=== PATIENT | female | born 1950 | race Caucasian/White ===

== ENCOUNTER 2018-04-15 06:43 | Day surgery (SDC) | payer MEDICARE, BC ==
[~2018-04-15 06:43] MED LIST: Lactated Ringers 1,000 ML IV SCH; Sodium Chloride 0.9% 10 ML Syringe FLUSH PRN; Sodium Chloride 0.9% 2.5 ML Syringe FLUSH PRN; ceFAZolin 2 GM in Premix Bag 1 BAG IV ONE
[2018-04-15] MEDS ORDERED: Lidocaine 2% 5 ML SDV ONE (07:20)
[2018-04-15] MEDS ORDERED: Ondansetron 4 MG/2 ML SDV ONE (07:20)
[2018-04-15] MEDS ORDERED: Propofol 200 MG/20 ML SDV ONE (07:21)
[2018-04-15] MEDS ORDERED: fentaNYL 100 MCG/2 ML SDV ONE (07:21)
[2018-04-15] MEDS ORDERED: Midazolam 1 MG/ML 2 ML SDV ONE (07:21)
[2018-04-15] MEDS ORDERED: Bupivacaine 0.5% 10 ML SDV ONE (07:24)
[2018-04-15] MEDS ORDERED: Heparin Sodium 100 Units/ML 3 ML Syringe ONE (07:25)
[2018-04-15] MEDS ORDERED: Lidocaine 1% 20 ML MDV ONE (07:25)
[2018-04-15] MEDS ORDERED: Iopamidol 408 MG/ML 50 ML SDV ONE (07:25)
--- NOTE | 2018-04-15 07:25 | PCM.PREANE ---
Preanesthetic Assessment - Anesthesia/Transfusion/Family Hx Anesthesia History: Prior Anesthesia Without Reaction Family History of Anesthesia Reaction: No Transfusion History: Prior Transfusion Without Reaction Intubation History: Unknown - Review of Systems General: No Symptoms Pulmonary: No Symptoms Cardiovascular: No Symptoms Gastrointestinal: No Symptoms Neurological: No Symptoms Other: Reports: None - Physical Assessment NPO Status Date: 04/14/18 O2 Sat by Pulse Oximetry: 96 Respiratory Rate: 16 Vital Signs: Last Vital Signs Temp 37.4 C 04/15/18 07:22 Pulse 107 H 04/15/18 07:22 Resp 16 04/15/18 07:22 BP 142/86 H 04/15/18 07:22 Pulse Ox 96 04/15/18 07:22 Height: 1.65 m Weight: 79.832 kg ASA Class: 2 Mental Status: Alert & Oriented x3 Airway Class: Mallampati = 1 Dentition: Reports: Normal Dentition ROM/Head Extension: Full Lungs: Clear to Auscultation, Normal Respiratory Effort - Allergies Allergies/Adverse Reactions: Allergies Allergy/AdvReac Type Severity Reaction Status Date / Time erythromycin base Allergy Hives Verified 04/10/18 12:32 nitrofurantoin Allergy Hives Verified 04/10/18 12:32 [From Macrodantin] Sulfa (Sulfonamide Allergy Hives Verified 04/10/18 12:32 Antibiotics) - Blood Blood Available: No - Anesthesia Plan Pre-Op Medication Ordered: None - Acknowledgements Anesthesia Type Planned: General Anesthesia Pt an Appropriate Candidate for the Planned Anesthesia: Yes Alternatives and Risks of Anesthesia Discussed w Pt/Guardian: Yes Pt/Guardian Understands and Agrees with Anesthesia Plan: Yes Additional Comments: PMH: colon cancer, sore throat from ETT () PLAN: GA-LMA PreAnesthesia Questionnaire HEENT History: Reports: Other (See Below) Other HEENT History: wears glasses Cardiovascular History: Reports: Heart Murmur, Other (See Below) Other Cardiovascular History: mitral valve prolapse discovered by chance, always asymptomatic Gastrointestinal History: Reports: Colon Polyp Genitourinary History: Reports: None [employer] History: Reports: Ectopic , Endocrine/Metabolic History: Reports: None Hematologic History: Reports: Blood Transfusion(s) Oncologic (Cancer) History: Reports: Colon - Past Surgical History Head Surgeries/Procedures: Reports: None GI Surgical History: Reports: Colon, Colonoscopy Other GI Surgeries/Procedures: hx colon resection for colon cancer Female Surgical History: Reports: Section, Other (See Below) Other Female Surgeries/Procedures: laparotomy with salpingectomy for ectopic - SUBSTANCE USE Smoking Status *Q: Never Smoker Recreational Drug Use History: No - HOME MEDS Home Medications: Home Meds . [No Known Home Meds] 01/13/18 [History] - CURRENT (IN HOUSE) MEDS Current Meds: Current Medications Lactated Ringer's (Ringers, Lactated) 1,000 mls @ 125 mls/hr IV ASDIRECTED AYSHA Last Admin: 04/15/18 07:22 Dose: 125 mls/hr Sodium Chloride (Saline Flush) 10 ml FLUSH ASDIRECTED PRN PRN Reason: Keep Vein Open Sodium Chloride (Saline Flush) 2.5 ml FLUSH ASDIRECTED PRN PRN Reason: Keep Vein Open Discontinued Medications Cefazolin Sodium/Dextrose 2 gm (/ Premix) 50 mls @ 100 mls/hr IV ONETIME ONE Stop: 04/14/18 10:09
[2018-04-15] MEDS ORDERED: ceFAZolin/Dextrose,Iso-Osmotic 2 GM/50 ML Duplex Bag IV ONE (07:49)
[2018-04-15] MEDS ORDERED: fentaNYL 100 MCG/2 ML SDV IVPUSH PRN (08:43)
--- NOTE | 2018-04-15 09:03 | PCM.OPNOTE ---
- General Post-Op/Procedure Note Date of Surgery/Procedure: 04/15/18 Operative Procedure(s): Port a cath placement Findings: RIJ port a cath placement Pre Op Diagnosis: Colon cancer Post-Op Diagnosis: colon cancer Anesthesia Technique: General LMA Primary Surgeon: Cierra Mayers EBL in mLs: 5 Condition: Good
--- NOTE | 2018-04-15 09:39 | PCM.POSTAN ---
POST ANESTHESIA ASSESSMENT - MENTAL STATUS Mental Status: Alert, Oriented - RESPIRATORY Respiratory Status: Respiratory Rate WNL, Airway Patent, O2 Saturation Stable - CARDIOVASCULAR CV Status: Pulse Rate WNL, Blood Pressure Stable - GASTROINTESTINAL GI Status: No Symptoms - POST OP HYDRATION Hydration Status: Adequate & Stable
--- NOTE | 2018-04-15 09:44 | CR ---
EXAMINATION: Portable chest radiograph. HISTORY: Portacatheter placement. FINDINGS: The trachea is midline. The cardiomediastinal silhouette is within normal limits. No pulmonary infiltrates, effusions or pneumothorax. There is a right-sided portacatheter noted with tip in good position. Osseous structures appear unremarkable. IMPRESSION: No acute cardiopulmonary process.
--- NOTE | 2018-04-15 10:04 | PCM48HPAN ---
Post Anesthesia Note - EVALUATION WITHIN 48HRS OF ANESTHETIC Vital Signs in Normal Range: Yes Patient Participated in Evaluation: Yes Respiratory Function Stable: Yes Airway Patent: Yes Cardiovascular Function Stable: Yes Hydration Status Stable: Yes Pain Control Satisfactory: Yes Nausea and Vomiting Control Satisfactory: Yes Mental Status Recovered: Yes Resp Rate: 14
--- NOTE | 2018-04-15 12:29 | OR ---
SURGEON: LAUREN PINEDO MD DATE OF PROCEDURE: 04/15/2018 PREOPERATIVE DIAGNOSIS: Colon cancer. POSTOPERATIVE DIAGNOSIS: Colon cancer. PROCEDURE PERFORMED: Right internal jugular Port-A-Cath placement. ANESTHESIA: General LMA. FLUIDS: 1400 mL. ESTIMATED BLOOD LOSS: 5 mL. FINDINGS: Placement of right internal jugular port. COMPLICATIONS: None. INDICATIONS: The patient is a 67-year-old female who recently underwent surgery for multifocal colon cancer. She was found to have positive lymph nodes. Because of this, she will need to undergo chemotherapy and is in need of a Port-A-Cath. I explained the procedure to place a Port-A-Cath, the expected perioperative course, and risks including bleeding, infection, or damage to surrounding structures. The patient verbalized understanding and wishes to proceed. PROCEDURE IN DETAIL: The patient was brought to the OR and placed on the OR table in supine position. A time-out was completed verifying the patient's name, age, date of , allergies, and procedure to be performed. General LMA anesthesia was induced. A shoulder roll was placed under the patient's shoulders and both arms were tucked at the patient's side. An ultrasound was used to confirm the vascular anatomy of the right side of the neck. The neck and chest were then prepped and draped in usual standard fashion. The patient was placed into Trendelenburg position. I used a sterile ultrasound probe to re-identify the vascular anatomy of the neck. I anesthetized the area overlying the right internal jugular vein with 1% lidocaine plain. I anesthetized the tunnel tract and the chest wall site with the remainder my lidocaine as well as with 0.5% Marcaine. Using ultrasound guidance, I then placed a guide needle into the right internal jugular vein. A guidewire was placed down the needle and advanced without difficulty. The needle was removed and the guidewire was secured to the drapes. C-arm was brought in, which showed good placement of the wire into the SVC down into the IVC. I then turned my attention to the right anterior chest wall. I chose a spot two fingerbreadths below the lateral right clavicle and made a 4-cm incision using a #15 blade. Cautery was used to dissect down into the subcutaneous fat layer and created a subcutaneous pocket. Once this was created, I then tunneled the catheter tubing from the anterior chest wall site up to the guidewire insertion site. An 11 blade was used to make an incision overlying the guidewire to allow passage of the tunneler. The vascular sheath and dilator were then placed over the guidewire and the vascular tract was dilated using fluoroscopic guidance. The dilator was removed and the catheter tubing was placed down the vascular sheath. The vascular sheath was peeled away. Using fluoroscopic guidance, I pulled the end of the catheter tubing into the distal SVC. An x-ray of this was taken and saved. The catheter tubing was aspirated and flushed with normal saline. A brisk return of venous blood was noted. I then turned the catheter tubing to size and place it on the Port-A- Cath device. The port was then placed in the chest wall pocket and secured with 2-0 Prolenes on either side. The Port-A-Cath device was aspirated and there was a brisk return of venous blood. I then locked the Port-A-Cath with 4 mL of heparin. I then closed the chest wall site with interrupted 3-0 Vicryls in the subcutaneous fat layer and closed the skin with a running 4-0 Monocryl stitch. I closed the neck insertion site with an interrupted 4-0 Monocryl suture. Steri- Strips and sterile dressings were applied. The patient tolerated the procedure well, was taken to PACU in stable condition. LEONOR NEAL /[id number]
--- NOTE | 2018-04-15 14:58 | CR ---
EXAMINATION: Chest HISTORY: Portacatheter placement COMPARISON: Same day TECHNIQUE: Single fluoroscopic image FINDINGS/IMPRESSION: Operative control film demonstrates portacatheter tubing projecting over the right SVC.
== END 2018-04-15 10:17 | disposition home or self-care (01) ==
LOC: MW.SDS 06:43
PROVIDERS: ATTEND Surgery
DX: C18.9 Malignant neoplasm of colon, unspecified (principal); C77.9 Secondary and unspecified malignant neoplasm of lymph node, unspecified; Z79.899 Other long term (current) drug therapy; Z80.0 Family history of malignant neoplasm of digestive organs; Z90.49 Acquired absence of other specified parts of digestive tract; Z88.1 Allergy status to other antibiotic agents; Z88.2 Allergy status to sulfonamides
CPT/HCPCS: 36561; 71045; 76000; J0690; J1642; J2250; J2405; J2704; J3010; J3490; J7120; Q9966

== ENCOUNTER 2018-07-02 16:46 | Inpatient (IN) | payer MEDICARE, BC ==
[2018-07-02] MEDS ORDERED: Aspirin 81 MG Tab.Chew PO ONE (16:52)
[2018-07-02] MEDS ORDERED: Sodium Chloride 0.9% 1,000 ML IV ONE (16:52)
--- NOTE | 2018-07-02 16:53 | EDM.PDOC ---
<Jordon Burnham - Last Filed: 07/02/18 18:55> ED HPI GENERAL MEDICAL PROBLEM - General Chief Complaint: Chest Pain Stated Complaint: LEFT SIDE PAIN Time Seen by Provider: 07/02/18 16:53 Source of Information: Reports: Patient - History of Present Illness INITIAL COMMENTS - FREE TEXT/NARRATIVE: HISTORY AND PHYSICAL: History of present illness: [Patient with history of colon cancer with colon resection on chemotherapy presents with left-sided chest pain no radiation arm neck or jaw no diaphoresis or shortness of breath She has had cough over the last week no current fever nausea vomiting chills sweats no headache dizziness or palpitation no bowel or urine symptoms, no injury or trauma Had spoken with her cancer doctor who was concerned with PE she presents as such ] Review of systems: As per history of present illness and below otherwise all systems reviewed and negative. Past medical history: As per history of present illness and as reviewed below otherwise noncontributory. Surgical history: As per history of present illness and as reviewed below otherwise noncontributory. Social history: No reported history of drug or alcohol abuse. Family history: As per history of present illness and as reviewed below otherwise noncontributory. Physical exam: HEENT: Atraumatic, normocephalic, pupils reactive, negative for conjunctival pallor or scleral icterus, mucous membranes moist, throat clear, neck supple, nontender, trachea midline. Lungs: Clear to auscultation, breath sounds equal bilaterally, chest nontender on right there is some tenderness on the lower rib margins on the left. Post DuoNeb and Solu-Medrol Heart: S1S2, regular, negative for clicks, rubs, or JVD. Abdomen: Soft, nondistended, nontender. Negative for masses or hepatosplenomegaly. Negative for costovertebral tenderness. Pelvis: Stable nontender. Genitourinary: Deferred. Rectal: Deferred. Extremities: Atraumatic, negative for cords or calf pain. Neurovascular unremarkable. Neuro: Awake, alert, oriented. Cranial nerves II through XII unremarkable. Cerebellum unremarkable. Motor and sensory unremarkable throughout. Exam nonfocal. Diagnostics: [CBC CMP UA troponin and d-dimer EKG Chest 1 view ] Therapeutics: [ saline DuoNeb Solu-Medrol Azithromycin Atrial dose pack HFA ] Impression: [ bronchitis left-sided chest wall pain ] Elevated d-dimer Chronic history of baseline Definitive disposition and diagnosis as appropriate pending reevaluation and review of above. Left Chest Pain Score (Numeric/FACES): 5 - Related Data Allergies Allergy/AdvReac Type Severity Reaction Status Date / Time erythromycin base Allergy Hives Verified 07/02/18 16:53 nitrofurantoin Allergy Hives Verified 07/02/18 16:53 [From Macrodantin] Sulfa (Sulfonamide Allergy Hives Verified 07/02/18 16:53 Antibiotics) Home Meds: Home Meds Non-Formulary Medication [NF Drug] 1 tab PO BID 07/02/18 [History] Ondansetron [Ondansetron ODT] 1 tab PO ASDIRECTED PRN 07/02/18 [History] Prochlorperazine [Compazine] 10 mg PO ASDIRECTED PRN 07/02/18 [History] Past Medical History HEENT History: Reports: Other (See Below) Other HEENT History: wears glasses Cardiovascular History: Reports: Heart Murmur, Other (See Below) Other Cardiovascular History: mitral valve prolapse discovered by chance, always asymptomatic Gastrointestinal History: Reports: Colon Polyp Genitourinary History: Reports: None 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: 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: Ectopic , Endocrine/Metabolic History: Reports: None Hematologic History: Reports: Blood Transfusion(s) Oncologic (Cancer) History: Reports: Colon - Past Surgical History Head Surgeries/Procedures: Reports: None GI Surgical History: Reports: Colon, Colonoscopy Other GI Surgeries/Procedures: hx colon resection for colon cancer Female Surgical History: Reports: Section, Other (See Below) Other Female Surgeries/Procedures: laparotomy with salpingectomy for ectopic Course - Vital Signs Last Recorded V/S: Last Vital Signs Temp 36.2 C 07/02/18 16:49 Pulse 110 H 07/02/18 17:53 Resp 20 07/02/18 16:49 BP 147/94 H 07/02/18 17:53 Pulse Ox 98 07/02/18 17:53 - Orders/Labs/Meds Orders: Active Orders 24 hr Category Date Time Status EKG 12 Lead [EKG Documentation Completion] [RC] STAT Care 07/02/18 16:53 Active RT Aerosol Therapy [RC] ASDIRECTED Care 07/02/18 18:38 Active Labs: Laboratory Tests 07/02/18 07/02/18 07/02/18 Range/Units 17:30 17:30 18:05 WBC 8.77 (4.0-11.0) K/uL RBC 4.12 L (4.30-5.90) M/uL Hgb 12.8 (12.0-16.0) g/dL Hct 37.0 (36.0-46.0) % MCV 89.8 (80.0-98.0) fL MCH 31.1 (27.0-32.0) pg MCHC 34.6 (31.0-37.0) g/dL RDW Std Deviation 51.6 (28.0-62.0) fl RDW Coeff of Gene 16 H (11.0-15.0) % Plt Count 128 L (150-400) K/uL MPV 9.60 (7.40-12.00) fL Neut % (Auto) 64.7 (48.0-80.0) % Lymph % (Auto) 22.3 (16.0-40.0) % Stark % (Auto) 10.7 (0.0-15.0) % Eos % (Auto) 2.2 (0.0-7.0) % Baso % (Auto) 0.1 (0.0-1.5) % Neut # (Auto) 5.7 (1.4-5.7) K/uL Lymph # (Auto) 2.0 (0.6-2.4) K/uL Stark # (Auto) 0.9 H (0.0-0.8) K/uL Eos # (Auto) 0.2 (0.0-0.7) K/uL Baso # (Auto) 0.0 (0.0-0.1) K/uL Nucleated RBC % 0.2 /100WBC Nucleated RBCs # 0 K/uL D-Dimer, Quantitative 3.04 H (0.0-0.50) mg/L FEU Sodium 139 (136-145) mmol/L Potassium 4.2 (3.5-5.1) mmol/L Chloride 104 (98-107) mmol/L Carbon Dioxide 24.5 (21.0-32.0) mmol/L BUN 17 (7.0-18.0) mg/dL Creatinine 0.7 (0.6-1.0) mg/dL Est Cr Clr Drug Dosing 72.10 mL/min Estimated GFR (MDRD) > 60.0 ml/min Glucose 105 (74-106) mg/dL Calcium 8.9 (8.5-10.1) mg/dL Total Bilirubin 0.7 (0.2-1.0) mg/dL AST 16 (15-37) IU/L ALT 24 (14-63) IU/L Alkaline Phosphatase 90 (46-116) U/L Troponin I < 0.050 (0.000-0.056) ng/mL Total Protein 7.2 (6.4-8.2) g/dL Albumin 3.3 L (3.4-5.0) g/dL Globulin 3.9 (2.6-4.0) g/dL Albumin/Globulin Ratio 0.9 (0.9-1.6) Lipase 215 (73-393) U/L Urine Color Urine Appearance Urine pH (5.0-8.0) Ur Specific [place] (1.001-1.035) Urine Protein (NEGATIVE) mg/dL Urine Glucose (UA) (NEGATIVE) mg/dL Urine Ketones (NEGATIVE) mg/dL Urine Occult Blood (NEGATIVE) Urine Nitrite (NEGATIVE) Urine Bilirubin (NEGATIVE) Urine Urobilinogen (<2.0) EU/dL Ur Leukocyte Esterase (NEGATIVE) 07/02/18 Range/Units 20:08 WBC (4.0-11.0) K/uL RBC (4.30-5.90) M/uL Hgb (12.0-16.0) g/dL Hct (36.0-46.0) % MCV (80.0-98.0) fL MCH (27.0-32.0) pg MCHC (31.0-37.0) g/dL RDW Std Deviation (28.0-62.0) fl RDW Coeff of Gene (11.0-15.0) % Plt Count (150-400) K/uL MPV (7.40-12.00) fL Neut % (Auto) (48.0-80.0) % Lymph % (Auto) (16.0-40.0) % Stark % (Auto) (0.0-15.0) % Eos % (Auto) (0.0-7.0) % Baso % (Auto) (0.0-1.5) % Neut # (Auto) (1.4-5.7) K/uL Lymph # (Auto) (0.6-2.4) K/uL Stark # (Auto) (0.0-0.8) K/uL Eos # (Auto) (0.0-0.7) K/uL Baso # (Auto) (0.0-0.1) K/uL Nucleated RBC % /100WBC Nucleated RBCs # K/uL D-Dimer, Quantitative (0.0-0.50) mg/L FEU Sodium (136-145) mmol/L Potassium (3.5-5.1) mmol/L Chloride (98-107) mmol/L Carbon Dioxide (21.0-32.0) mmol/L BUN (7.0-18.0) mg/dL Creatinine (0.6-1.0) mg/dL Est Cr Clr Drug Dosing mL/min Estimated GFR (MDRD) ml/min Glucose (74-106) mg/dL Calcium (8.5-10.1) mg/dL Total Bilirubin (0.2-1.0) mg/dL AST (15-37) IU/L ALT (14-63) IU/L Alkaline Phosphatase (46-116) U/L Troponin I (0.000-0.056) ng/mL Total Protein (6.4-8.2) g/dL Albumin (3.4-5.0) g/dL Globulin (2.6-4.0) g/dL Albumin/Globulin Ratio (0.9-1.6) Lipase (73-393) U/L Urine Color YELLOW Urine Appearance CLEAR Urine pH 5.5 (5.0-8.0) Ur Specific [place] 1.020 (1.001-1.035) Urine Protein NEGATIVE (NEGATIVE) mg/dL Urine Glucose (UA) NEGATIVE (NEGATIVE) mg/dL Urine Ketones NEGATIVE (NEGATIVE) mg/dL Urine Occult Blood NEGATIVE (NEGATIVE) Urine Nitrite NEGATIVE (NEGATIVE) Urine Bilirubin NEGATIVE (NEGATIVE) Urine Urobilinogen 0.2 (<2.0) EU/dL Ur Leukocyte Esterase NEGATIVE (NEGATIVE) Meds: Medications Discontinued Medications Generic Name Dose Route Start Last Admin Trade Name Freq PRN Reason Stop Dose Admin Albuterol/Ipratropium 3 ml 03/27/19 18:38 07/02/18 19:14 Duoneb 3.0-0.5 Mg/3 Ml NEB 07/02/18 18:39 3 ml ONETIME ONE Administration Aspirin 324 mg 07/02/18 16:52 07/02/18 17:48 Aspirin PO 07/02/18 16:53 324 mg ONETIME ONE Administration Enoxaparin Sodium 80 mg 07/02/18 20:20 Lovenox SUBCUT 07/02/18 20:21 ONETIME ONE Sodium Chloride 1,000 mls @ 999 mls/hr 07/02/18 16:52 07/02/18 17:30 Normal Saline IV 07/02/18 17:52 999 mls/hr STAT ONE Administration Iopamidol 100 ml 07/02/18 19:45 07/02/18 19:46 Isovue Multipack-370 (76%) IVPUSH 07/02/18 19:46 100 ml ONETIME STA Administration Methylprednisolone Sodium Succinate 125 mg 07/02/18 18:38 07/02/18 19:16 Solu-Medrol IVPUSH 07/02/18 18:39 125 mg ONETIME ONE Administration Departure - Departure Disposition: Admitted As Inpatient 68 Clinical Impression: Pulmonary embolism - Discharge Information Referrals: PCP,Unknown [Primary Care Provider] - Forms: ED Department Discharge <Jefry Booth - Last Filed: 07/02/18 20:23> ED HPI GENERAL MEDICAL PROBLEM - History of Present Illness INITIAL COMMENTS - FREE TEXT/NARRATIVE: Patient CT was remarkable for bilateral pulmonary embolism and suggestion of atelectasis with or without possible pulmonary infarction patient was given Lovenox milligram per kilogram subcutaneous here and will be admitted ED ROS GENERAL - Review of Systems Review Of Systems: ROS reveals no pertinent complaints other than HPI. ED EXAM, GENERAL - Physical Exam Exam: See Below (See dictation) Departure - Departure Time of Disposition: 20:21 Condition: Fair
[2018-07-02 18:26] LABS: CHLORIDE,CL 104 mmol/L (98-107); SODIUM,NA 139 mmol/L (136-145)
--- NOTE | 2018-07-02 18:31 | CR ---
Indication: Left-sided chest pain. Technique: A single AP portable view of the chest was obtained. Comparison: April 15, 2018. Findings: A right-sided Port-A-Cath is identified. The heart is normal in size. Left basilar atelectasis and/or infiltrate is identified. The right lung is clear. No pleural effusion or pneumothorax is identified. Impression: Left basilar atelectasis and/or infiltrate. Dictated by Taty Burkett MD @ Jul 02 2018 6:30PM Signed by Dr. Ttay Burkett @ Jul 02 2018 6:30PM
[2018-07-02] MEDS ORDERED: Albuterol/Ipratropium 3.0-0.5 MG/3 ML Neb Soln NEB ONE (18:38)
[2018-07-02] MEDS ORDERED: methylPREDNISolone Sodium Succinate 125 MG/2 ML SDV IVPUSH ONE (18:38)
[2018-07-02] MEDS ORDERED: Iopamidol 755 MG/ML 500 ML Multipack Bottle IVPUSH STA (19:45)
--- NOTE | 2018-07-02 20:14 | CT ---
INDICATION: Elevated D-dimer, colon cancer TECHNIQUE: CT chest pulmonary PE protocol acquired with 75 cc Isovue 370 IV contrast. COMPARISON: Chest radiographs from July 02, 2018 and April 15, 2018 FINDINGS: Cardiovascular structures: There are pulmonary emboli within segmental and subsegmental branches of both lower lobes. Heart size is normal. No sign of aneurysm or dissection in the thoracic aorta. Right-sided Port-A-Cath tip terminates at the cavoatrial junction. Mediastinum and paul: No mass or adenopathy. Lungs: Patchy opacity in the left lower lobe. Pleura and pericardium: Trace left pleural effusion. Chest wall and axilla: No mass or adenopathy. Upper abdomen: Unremarkable. Bones: No significant findings. IMPRESSION: Study is positive for bilateral pulmonary emboli within segmental and subsegmental branches of both lower lobes. No evidence for right heart strain. Patchy opacity in the left lower lobe may represent a combination of pulmonary infarction/atelectasis/ or infection. Trace left pleural effusion. These findings were discussed with Dr. Booth at 8:12 p.m. on July 02, 2018. Please note that all CT scans at this facility use dose modulation, iterative reconstruction, and/or weight-based dosing when appropriate to reduce radiation dose to as low as reasonably achievable. Dictated by Pat Huynh MD @ Jul 02 2018 8:12PM Signed by Dr. Pat Huynh @ Jul 02 2018 8:12PM
[2018-07-02] MEDS ORDERED: Enoxaparin 100 MG/1 ML Syringe SUBCUT ONE (20:20)
[2018-07-02] MEDS ORDERED: Acetaminophen 325 MG Tab PO PRN (20:52)
[2018-07-02] MEDS ORDERED: oxyCODONE 5 MG Tab PO PRN (20:53)
[2018-07-02] MEDS ORDERED: Sodium Chloride 0.9% 1,000 ML IV SCH (22:15)
[2018-07-03] MEDS ORDERED: Enoxaparin 100 MG/1 ML Syringe SUBCUT SCH (09:00)
[2018-07-03] MEDS ORDERED: Apixaban 5 MG Tab PO SCH (09:30)
--- NOTE | 2018-07-03 09:54 | PCM.HP ---
<Samia Zimmerman M - Last Filed: 07/03/18 11:59> H&P History of Present Illness - General Date of Service: 07/03/18 Admit Problem/Dx: Admission Diagnosis/Problem Admission Diagnosis/Problem Pulmonary embolism - History of Present Illness Initial Comments - Free Text/Narative: This 67 year old female with pmh of colorectal ca with colectomy and currently receiving chemotherapy treatments presented to the ED at the direction of the cancer center yesterday for L sided flank/chest pain that started the day prior. She reports she felt a little twinge on Saturday evening and by Saturday it was very painful to take a deep breath and to cough. She denied fevers or productive cough, no bloody sputum. She has no other medical history and has been doing well with chemotherapy treatments. In the ED D dimer elevated at 3.04. CXR revealed L basilar atelectasis and or infiltrate. CT angio of chest obtained which revealed bilateral pulmonary emboli within segmental and subsegmental braches of both lower lobes, no evidence of R heart strain. Patchy opacity in LLL may represent combination of infarction/atelectasis or infection. She will be admitted secondary to pulmonary emboli. Left Chest Pain Score (Numeric/FACES): 5 - Related Data Allergies/Adverse Reactions: Allergies Allergy/AdvReac Type Severity Reaction Status Date / Time erythromycin base Allergy Hives Verified 07/02/18 16:53 nitrofurantoin Allergy Hives Verified 07/02/18 16:53 [From Macrodantin] Sulfa (Sulfonamide Allergy Hives Verified 07/02/18 16:53 Antibiotics) Home Medications: Home Meds Non-Formulary Medication [NF Drug] 1 tab PO BID 07/02/18 [History] Ondansetron [Ondansetron ODT] 1 tab PO ASDIRECTED PRN 07/02/18 [History] Prochlorperazine [Compazine] 10 mg PO ASDIRECTED PRN 07/02/18 [History] Apixaban [Eliquis] 5 mg PO BID #60 tablet 07/03/18 [Rx] Apixaban [Eliquis] 10 mg PO BID #26 tablet 07/03/18 [Rx] Past Medical History HEENT History: Reports: Other (See Below) Other HEENT History: wears glasses Cardiovascular History: Reports: Heart Murmur, Other (See Below). 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 Denies: Diabetes, Type II Hematologic History: Reports: Blood Transfusion(s) Oncologic (Cancer) History: Reports: Colon - Infectious Disease History Infectious Disease History: Reports: None - Past Surgical History Head Surgeries/Procedures: Reports: None GI Surgical History: Reports: Colon, Colonoscopy Other GI Surgeries/Procedures: hx colon resection for colon cancer Female Surgical History: Reports: Section, Other (See Below) Other Female Surgeries/Procedures: laparotomy with salpingectomy for ectopic Social & Family History - Tobacco Use Smoking Status *Q: Never Smoker Second Hand Smoke Exposure: No - Caffeine Use Caffeine Use: Reports: Coffee, Tea - Alcohol Use Alcohol Use History: No - Recreational Drug Use Recreational Drug Use: No H&P Review of Systems - Review of Systems: Review Of Systems: See Below General: Reports: No Symptoms. Denies: Fever, Chills, Malaise, Weakness HEENT: Reports: No Symptoms Pulmonary: Reports: Pleuritic Chest Pain (L side under rib cage), Cough (dry, non productive). Denies: Shortness of Breath (mild, much better today), Hemoptysis Cardiovascular: Reports: No Symptoms. Denies: Chest Pain, Palpitations, Edema, Lightheadedness, Syncope Gastrointestinal: Reports: No Symptoms. Denies: Abdominal Pain, Decreased Appetite, Nausea, Vomiting Genitourinary: Reports: No Symptoms. Denies: Dysuria, Frequency, Burning Musculoskeletal: Reports: No Symptoms. Denies: Neck Pain Skin: Reports: No Symptoms. Denies: Cyanosis Psychiatric: Reports: No Symptoms. Denies: Confusion Neurological: Reports: No Symptoms Hematologic/Lymphatic: Reports: No Symptoms Immunologic: Reports: No Symptoms Exam - Exam Exam: See Below - Vital Signs Vital Signs: Last Vital Signs Temp 97 F 07/03/18 04:54 Pulse 79 07/03/18 04:54 Resp 16 07/03/18 04:54 BP 130/67 07/03/18 04:54 Pulse Ox 97 07/03/18 04:54 Weight: 82.735 kg - Exam Quality Assessment: Supplemental Oxygen (1/2 L NC) General: Alert, Oriented, 4 Neck: Supple Lungs: Clear to Auscultation, Crackles (fine to LLL) Cardiovascular: Regular Rate, Regular Rhythm GI/Abdominal Exam: Normal Bowel Sounds, Soft, Non-Tender, No Organomegaly Extremities: Normal Inspection, Normal Range of Motion, Non-Tender, No Pedal Edema Neuro Extensive - Mental Status: Alert, Oriented x3, Normal Mood/Affect Neuro Extensive - Motor, Sensory, Reflexes: CN II-XII Intact Psychiatric: Alert, Normal Affect, Normal Mood - Patient Data Lab Results Last 24 hrs: Laboratory Results - last 24 hr 07/02/18 07/02/18 07/02/18 Range/Units 17:30 17:30 18:05 WBC 8.77 (4.0-11.0) K/uL RBC 4.12 L (4.30-5.90) M/uL Hgb 12.8 (12.0-16.0) g/dL Hct 37.0 (36.0-46.0) % MCV 89.8 (80.0-98.0) fL MCH 31.1 (27.0-32.0) pg MCHC 34.6 (31.0-37.0) g/dL RDW Std Deviation 51.6 (28.0-62.0) fl RDW Coeff of Gene 16 H (11.0-15.0) % Plt Count 128 L (150-400) K/uL MPV 9.60 (7.40-12.00) fL Neut % (Auto) 64.7 (48.0-80.0) % Lymph % (Auto) 22.3 (16.0-40.0) % Walsh % (Auto) 10.7 (0.0-15.0) % Eos % (Auto) 2.2 (0.0-7.0) % Baso % (Auto) 0.1 (0.0-1.5) % Neut # (Auto) 5.7 (1.4-5.7) K/uL Lymph # (Auto) 2.0 (0.6-2.4) K/uL Walsh # (Auto) 0.9 H (0.0-0.8) K/uL Eos # (Auto) 0.2 (0.0-0.7) K/uL Baso # (Auto) 0.0 (0.0-0.1) K/uL Nucleated RBC % 0.2 /100WBC Nucleated RBCs # 0 K/uL D-Dimer, Quantitative 3.04 H (0.0-0.50) mg/L FEU Sodium 139 (136-145) mmol/L Potassium 4.2 (3.5-5.1) mmol/L Chloride 104 (98-107) mmol/L Carbon Dioxide 24.5 (21.0-32.0) mmol/L BUN 17 (7.0-18.0) mg/dL Creatinine 0.7 (0.6-1.0) mg/dL Est Cr Clr Drug Dosing 72.10 mL/min Estimated GFR (MDRD) > 60.0 ml/min Glucose 105 (74-106) mg/dL Calcium 8.9 (8.5-10.1) mg/dL Magnesium (1.8-2.4) mg/dL Total Bilirubin 0.7 (0.2-1.0) mg/dL AST 16 (15-37) IU/L ALT 24 (14-63) IU/L Alkaline Phosphatase 90 (46-116) U/L Troponin I < 0.050 (0.000-0.056) ng/mL Total Protein 7.2 (6.4-8.2) g/dL Albumin 3.3 L (3.4-5.0) g/dL Globulin 3.9 (2.6-4.0) g/dL Albumin/Globulin Ratio 0.9 (0.9-1.6) Lipase 215 (73-393) U/L Urine Color Urine Appearance Urine pH (5.0-8.0) Ur Specific Colgate (1.001-1.035) Urine Protein (NEGATIVE) mg/dL Urine Glucose (UA) (NEGATIVE) mg/dL Urine Ketones (NEGATIVE) mg/dL Urine Occult Blood (NEGATIVE) Urine Nitrite (NEGATIVE) Urine Bilirubin (NEGATIVE) Urine Urobilinogen (<2.0) EU/dL Ur Leukocyte Esterase (NEGATIVE) 07/02/18 07/03/18 07/03/18 Range/Units 20:08 05:43 05:43 WBC 7.98 (4.0-11.0) K/uL RBC 4.06 L (4.30-5.90) M/uL Hgb 12.5 (12.0-16.0) g/dL Hct 36.5 (36.0-46.0) % MCV 89.9 (80.0-98.0) fL MCH 30.8 (27.0-32.0) pg MCHC 34.2 (31.0-37.0) g/dL RDW Std Deviation 50.6 (28.0-62.0) fl RDW Coeff of Gene 16 H (11.0-15.0) % Plt Count 123 L (150-400) K/uL MPV 10.00 (7.40-12.00) fL Neut % (Auto) 89.0 H (48.0-80.0) % Lymph % (Auto) 8.9 L (16.0-40.0) % Walsh % (Auto) 2.1 (0.0-15.0) % Eos % (Auto) 0.0 (0.0-7.0) % Baso % (Auto) 0.0 (0.0-1.5) % Neut # (Auto) 7.1 H (1.4-5.7) K/uL Lymph # (Auto) 0.7 (0.6-2.4) K/uL Walsh # (Auto) 0.2 (0.0-0.8) K/uL Eos # (Auto) 0.0 (0.0-0.7) K/uL Baso # (Auto) 0.0 (0.0-0.1) K/uL Nucleated RBC % 0.0 /100WBC Nucleated RBCs # 0 K/uL D-Dimer, Quantitative (0.0-0.50) mg/L FEU Sodium 140 (136-145) mmol/L Potassium 4.2 (3.5-5.1) mmol/L Chloride 105 (98-107) mmol/L Carbon Dioxide 22.3 (21.0-32.0) mmol/L BUN 18 (7.0-18.0) mg/dL Creatinine 1.0 (0.6-1.0) mg/dL Est Cr Clr Drug Dosing 50.47 mL/min Estimated GFR (MDRD) 55.6 ml/min Glucose 216 H (74-106) mg/dL Calcium 8.8 (8.5-10.1) mg/dL Magnesium 2.4 (1.8-2.4) mg/dL Total Bilirubin (0.2-1.0) mg/dL AST (15-37) IU/L ALT (14-63) IU/L Alkaline Phosphatase (46-116) U/L Troponin I (0.000-0.056) ng/mL Total Protein (6.4-8.2) g/dL Albumin (3.4-5.0) g/dL Globulin (2.6-4.0) g/dL Albumin/Globulin Ratio (0.9-1.6) Lipase (73-393) U/L Urine Color YELLOW Urine Appearance CLEAR Urine pH 5.5 (5.0-8.0) Ur Specific [place]gate 1.020 (1.001-1.035) Urine Protein NEGATIVE (NEGATIVE) mg/dL Urine Glucose (UA) NEGATIVE (NEGATIVE) mg/dL Urine Ketones NEGATIVE (NEGATIVE) mg/dL Urine Occult Blood NEGATIVE (NEGATIVE) Urine Nitrite NEGATIVE (NEGATIVE) Urine Bilirubin NEGATIVE (NEGATIVE) Urine Urobilinogen 0.2 (<2.0) EU/dL Ur Leukocyte Esterase NEGATIVE (NEGATIVE) Result Diagrams: 07/03/18 05:43 07/03/18 05:43 - Problem List (1) Pulmonary embolism SNOMED Code(s): 68627668 ICD Code: I26.99 - OTHER PULMONARY EMBOLISM WITHOUT ACUTE COR PULMONALE Status: Acute Current Visit: Yes Qualifiers: Pulmonary embolism type: other Chronicity: acute Acute cor pulmonale presence: without acute cor pulmonale Qualified Code(s): I26.99 - Other pulmonary embolism without acute cor pulmonale (2) Colon cancer SNOMED Code(s): 907744495 ICD Code: C18.9 - MALIGNANT NEOPLASM OF COLON, UNSPECIFIED Status: Chronic Current Visit: No Problem List Initiated/Reviewed/Updated: Yes Orders Last 24hrs: Active Orders 24 hr Category Date Time Status Patient Status [ADT] Stat ADT 07/02/18 20:23 Active RT Aerosol Therapy [RC] ASDIRECTED Care 07/02/18 18:38 Active Telemetry Monitoring [Cardiac Monitoring] [RC] Q8H Care 07/02/18 21:05 Active Regular Diet [DIET] Diet 07/03/18 Breakfast Active Acetaminophen [Tylenol] Med 07/02/18 20:52 Active 650 mg PO Q4H PRN Apixaban [Eliquis] Med 07/03/18 09:30 Active 10 mg PO BID Sodium Chloride 0.9% [Normal Saline] 1,000 ml Med 07/02/18 22:15 Active IV ASDIRECTED oxyCODONE Med 07/02/18 20:53 Active 5 mg PO Q4H PRN Medication Orders Acetaminophen (Tylenol) 650 mg PO Q4H PRN PRN Reason: Pain Apixaban (Eliquis) 10 mg PO BID AYSHA Sodium Chloride (Normal Saline) 1,000 mls @ 50 mls/hr IV ASDIRECTED AYSHA Last Admin: 07/02/18 22:41 Dose: 50 mls/hr Oxycodone HCl (Oxycodone) 5 mg PO Q4H PRN PRN Reason: Pain (moderate 4-6) Assessment/Plan Comment:: This 67 year old female admitted with acute pulmonary embolism. 1. PE: Received Lovenox in ED. Feels improved today and is requesting discharge home. She was challenged on RA, and was sating high 90s and 93% with activity. I spoke with her Oncologist Dr Casiano, who recommended switching her to Eliquis BID treatment. She was given 10 mg today and will continue this dosage twice daily 7 total days, then switch to 5 mg twice daily. She was educated on signs of bleeding to watch for while taking this medication. She will be discharged home today. Stable. She reports she does not need pain medication as pain is tolerable. Eliquis prescription sent x 1 month to pharmacy. Follow up in 1 week with PCP and as scheduled with Oncology, next week. <Cedric Lopez - Last Filed: 07/03/18 12:54> H&P History of Present Illness - General Admit Problem/Dx: Admission Diagnosis/Problem Admission Diagnosis/Problem Pulmonary embolism - History of Present Illness Initial Comments - Free Text/Narative: I have examined the patient independently of Samia Zimmerman CNP. I have discussed the case with her. I have reviewed and agree with the plan of care as outlined by her. Please see orders. Exam - Vital Signs Vital Signs: Last Vital Signs Temp 36.1 C 07/03/18 04:54 Pulse 79 07/03/18 04:54 Resp 16 07/03/18 04:54 BP 130/67 03/28/19 04:54 Pulse Ox 97 07/03/18 04:54 - Patient Data Lab Results Last 24 hrs: Laboratory Results - last 24 hr 07/02/18 07/02/18 07/02/18 Range/Units 17:30 17:30 18:05 WBC 8.77 (4.0-11.0) K/uL RBC 4.12 L (4.30-5.90) M/uL Hgb 12.8 (12.0-16.0) g/dL Hct 37.0 (36.0-46.0) % MCV 89.8 (80.0-98.0) fL MCH 31.1 (27.0-32.0) pg MCHC 34.6 (31.0-37.0) g/dL RDW Std Deviation 51.6 (28.0-62.0) fl RDW Coeff of Gene 16 H (11.0-15.0) % Plt Count 128 L (150-400) K/uL MPV 9.60 (7.40-12.00) fL Neut % (Auto) 64.7 (48.0-80.0) % Lymph % (Auto) 22.3 (16.0-40.0) % Walsh % (Auto) 10.7 (0.0-15.0) % Eos % (Auto) 2.2 (0.0-7.0) % Baso % (Auto) 0.1 (0.0-1.5) % Neut # (Auto) 5.7 (1.4-5.7) K/uL Lymph # (Auto) 2.0 (0.6-2.4) K/uL Walsh # (Auto) 0.9 H (0.0-0.8) K/uL Eos # (Auto) 0.2 (0.0-0.7) K/uL Baso # (Auto) 0.0 (0.0-0.1) K/uL Nucleated RBC % 0.2 /100WBC Nucleated RBCs # 0 K/uL D-Dimer, Quantitative 3.04 H (0.0-0.50) mg/L FEU Sodium 139 (136-145) mmol/L Potassium 4.2 (3.5-5.1) mmol/L Chloride 104 (98-107) mmol/L Carbon Dioxide 24.5 (21.0-32.0) mmol/L BUN 17 (7.0-18.0) mg/dL Creatinine 0.7 (0.6-1.0) mg/dL Est Cr Clr Drug Dosing 72.10 mL/min Estimated GFR (MDRD) > 60.0 ml/min Glucose 105 (74-106) mg/dL Calcium 8.9 (8.5-10.1) mg/dL Magnesium (1.8-2.4) mg/dL Total Bilirubin 0.7 (0.2-1.0) mg/dL AST 16 (15-37) IU/L ALT 24 (14-63) IU/L Alkaline Phosphatase 90 (46-116) U/L Troponin I < 0.050 (0.000-0.056) ng/mL Total Protein 7.2 (6.4-8.2) g/dL Albumin 3.3 L (3.4-5.0) g/dL Globulin 3.9 (2.6-4.0) g/dL Albumin/Globulin Ratio 0.9 (0.9-1.6) Lipase 215 (73-393) U/L Urine Color Urine Appearance Urine pH (5.0-8.0) Ur Specific Colgate (1.001-1.035) Urine Protein (NEGATIVE) mg/dL Urine Glucose (UA) (NEGATIVE) mg/dL Urine Ketones (NEGATIVE) mg/dL Urine Occult Blood (NEGATIVE) Urine Nitrite (NEGATIVE) Urine Bilirubin (NEGATIVE) Urine Urobilinogen (<2.0) EU/dL Ur Leukocyte Esterase (NEGATIVE) 07/02/18 07/03/18 07/03/18 Range/Units 20:08 05:43 05:43 WBC 7.98 (4.0-11.0) K/uL RBC 4.06 L (4.30-5.90) M/uL Hgb 12.5 (12.0-16.0) g/dL Hct 36.5 (36.0-46.0) % MCV 89.9 (80.0-98.0) fL MCH 30.8 (27.0-32.0) pg MCHC 34.2 (31.0-37.0) g/dL RDW Std Deviation 50.6 (28.0-62.0) fl RDW Coeff of Gene 16 H (11.0-15.0) % Plt Count 123 L (150-400) K/uL MPV 10.00 (7.40-12.00) fL Neut % (Auto) 89.0 H (48.0-80.0) % Lymph % (Auto) 8.9 L (16.0-40.0) % Walsh % (Auto) 2.1 (0.0-15.0) % Eos % (Auto) 0.0 (0.0-7.0) % Baso % (Auto) 0.0 (0.0-1.5) % Neut # (Auto) 7.1 H (1.4-5.7) K/uL Lymph # (Auto) 0.7 (0.6-2.4) K/uL Walsh # (Auto) 0.2 (0.0-0.8) K/uL Eos # (Auto) 0.0 (0.0-0.7) K/uL Baso # (Auto) 0.0 (0.0-0.1) K/uL Nucleated RBC % 0.0 /100WBC Nucleated RBCs # 0 K/uL D-Dimer, Quantitative (0.0-0.50) mg/L FEU Sodium 140 (136-145) mmol/L Potassium 4.2 (3.5-5.1) mmol/L Chloride 105 (98-107) mmol/L Carbon Dioxide 22.3 (21.0-32.0) mmol/L BUN 18 (7.0-18.0) mg/dL Creatinine 1.0 (0.6-1.0) mg/dL Est Cr Clr Drug Dosing 50.47 mL/min Estimated GFR (MDRD) 55.6 ml/min Glucose 216 H (74-106) mg/dL Calcium 8.8 (8.5-10.1) mg/dL Magnesium 2.4 (1.8-2.4) mg/dL Total Bilirubin (0.2-1.0) mg/dL AST (15-37) IU/L ALT (14-63) IU/L Alkaline Phosphatase (46-116) U/L Troponin I (0.000-0.056) ng/mL Total Protein (6.4-8.2) g/dL Albumin (3.4-5.0) g/dL Globulin (2.6-4.0) g/dL Albumin/Globulin Ratio (0.9-1.6) Lipase (73-393) U/L Urine Color YELLOW Urine Appearance CLEAR Urine pH 5.5 (5.0-8.0) Ur Specific [place]gate 1.020 (1.001-1.035) Urine Protein NEGATIVE (NEGATIVE) mg/dL Urine Glucose (UA) NEGATIVE (NEGATIVE) mg/dL Urine Ketones NEGATIVE (NEGATIVE) mg/dL Urine Occult Blood NEGATIVE (NEGATIVE) Urine Nitrite NEGATIVE (NEGATIVE) Urine Bilirubin NEGATIVE (NEGATIVE) Urine Urobilinogen 0.2 (<2.0) EU/dL Ur Leukocyte Esterase NEGATIVE (NEGATIVE) Result Diagrams: 07/03/18 05:43 07/03/18 05:43 Orders Last 24hrs: Active Orders 24 hr Category Date Time Status Patient Status [ADT] Stat ADT 07/02/18 20:23 Active RT Aerosol Therapy [RC] ASDIRECTED Care 07/02/18 18:38 Active Ready for Discharge [RC] PER UNIT ROUTINE Care 07/03/18 11:47 Active Telemetry Monitoring [Cardiac Monitoring] [RC] Q8H Care 07/02/18 21:05 Active Regular Diet [DIET] Diet 07/03/18 Breakfast Active Acetaminophen [Tylenol] Med 07/02/18 20:52 Active 650 mg PO Q4H PRN Apixaban [Eliquis] Med 07/03/18 09:30 Active 10 mg PO BID Sodium Chloride 0.9% [Normal Saline] 1,000 ml Med 07/02/18 22:15 Active IV ASDIRECTED oxyCODONE Med 07/02/18 20:53 Active 5 mg PO Q4H PRN Medication Orders Acetaminophen (Tylenol) 650 mg PO Q4H PRN PRN Reason: Pain Apixaban (Eliquis) 10 mg PO BID [facility] Last Admin: 07/03/18 09:59 Dose: 10 mg Sodium Chloride (Normal Saline) 1,000 mls @ 50 mls/hr IV ASDIRECTED [facility] Last Admin: 07/02/18 22:41 Dose: 50 mls/hr Oxycodone HCl (Oxycodone) 5 mg PO Q4H PRN PRN Reason: Pain (moderate 4-6)
== END 2018-07-03 12:45 | disposition home or self-care (01) | DRG 176 ==
LOC: MW.ED 16:46 → MW.MS 20:44
PROVIDERS: ADMIT Internal Medicine; ATTEND Internal Medicine
DX: I26.99 Other pulmonary embolism without acute cor pulmonale (principal); C18.9 Malignant neoplasm of colon, unspecified; G62.9 Polyneuropathy, unspecified; J40 Bronchitis, not specified as acute or chronic; Z88.1 Allergy status to other antibiotic agents; Z88.2 Allergy status to sulfonamides; Z79.899 Other long term (current) drug therapy; Z86.010 Personal history of colon polyps; Z92.21 Personal history of antineoplastic chemotherapy; Z88.8 Allergy status to other drugs, medicaments and biological substances
CPT/HCPCS: 36415; 71045; 71045-26; 71275; 71275-26; 80048; 80053; 81003; 83690; 83735; 84484; 85025; 85379; 96361; 96374; 99285-25; A9270-GY; J1650; J2930; J7040; J7620-GY; Q9967

== ENCOUNTER 2019-03-12 06:34 | Day surgery (SDC) | payer MEDICARE, BC ==
[~2019-03-12 06:34] MED LIST changes: +Sodium Chloride 0.9% 10 ML SDV IV PRN; -ceFAZolin 2 GM in Premix Bag 1 BAG IV ONE
--- NOTE | 2019-03-12 07:45 | PCM.PREANE ---
Preanesthetic Assessment - Anesthesia/Transfusion/Family Hx Anesthesia History: Prior Anesthesia Without Reaction Family History of Anesthesia Reaction: No Transfusion History: Prior Transfusion Without Reaction Intubation History: Unknown - Review of Systems General: No Symptoms Pulmonary: No Symptoms Cardiovascular: No Symptoms Gastrointestinal: No Symptoms Neurological: No Symptoms Other: Reports: None - Physical Assessment NPO Status Date: 03/11/19 Vital Signs: Last Vital Signs Temp 99.9 F 03/12/19 07:09 Pulse 102 H 03/12/19 07:09 Resp 16 03/12/19 07:09 BP 146/73 H 03/12/19 07:09 Pulse Ox 93 L 03/12/19 07:09 Height: 5 ft 5 in Weight: 89.358 kg ASA Class: 2 Mental Status: Alert & Oriented x3 Airway Class: Mallampati = 1 Dentition: Reports: Normal Dentition ROM/Head Extension: Full Lungs: Clear to Auscultation, Normal Respiratory Effort Cardiovascular: Regular Rate, Regular Rhythm - Allergies Allergies/Adverse Reactions: Allergies Allergy/AdvReac Type Severity Reaction Status Date / Time adhesive tape Allergy Blisters Verified 03/12/19 07:37 erythromycin base Allergy Hives Verified 03/12/19 07:37 nitrofurantoin Allergy Hives Verified 03/12/19 07:37 [From Macrodantin] Sulfa (Sulfonamide Allergy Hives Verified 03/12/19 07:37 Antibiotics) - Anesthesia Plan Pre-Op Medication Ordered: None - Acknowledgements Anesthesia Type Planned: General Anesthesia Pt an Appropriate Candidate for the Planned Anesthesia: Yes Alternatives and Risks of Anesthesia Discussed w Pt/Guardian: Yes Pt/Guardian Understands and Agrees with Anesthesia Plan: Yes Additional Comments: PMH: 1 yr s/p colon resection for Cancer, now colonoscopy for surveillance/ screening, hx pulm emb, on elliquis, stopped 48 hr ago PLAN: tiva PreAnesthesia Questionnaire HEENT History: Reports: Other (See Below) Other HEENT History: wears glasses Cardiovascular History: Reports: Other (See Below) Other Cardiovascular History: hx of Left Aortic Mitral Valve Prolapse Respiratory History: Reports: PE Other Respiratory History: hx of bilateral PE during chemotherapy- taking Eliquis Gastrointestinal History: Reports: Colon Polyp Genitourinary History: Reports: None 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 , Musculoskeletal History: Reports: Arthritis Endocrine/Metabolic History: Reports: Obesity/BMI 30+, Osteopenia Hematologic History: Reports: Blood Transfusion(s) Oncologic (Cancer) History: Reports: Basal Cell Carcinoma, Colon Other Oncologic History: basal cell removed from leg - Infectious Disease History Infectious Disease History: Reports: None - Past Surgical History Head Surgeries/Procedures: Reports: None GI Surgical History: Reports: Colon, Colonoscopy Other GI Surgeries/Procedures: hx of Laparoscopic Right Hemicolectomy and Sigmoidectomy Female Surgical History: Reports: Section, Other (See Below) Other Female Surgeries/Procedures: Salpingectomy for Ectopic Dermatological Surgical History: Reports: Skin Biopsy - SUBSTANCE USE Smoking Status *Q: Never Smoker Recreational Drug Use History: No - HOME MEDS Home Medications: Home Meds Apixaban [Eliquis] 5 mg PO BID #60 tablet 07/03/18 [Rx] - CURRENT (IN HOUSE) MEDS Current Meds: Current Medications Lactated Ringer's (Ringers, Lactated) 1,000 mls @ 125 mls/hr IV ASDIRECTED AYSHA Sodium Chloride (Saline Flush) 10 ml FLUSH ASDIRECTED PRN PRN Reason: Keep Vein Open Sodium Chloride (Saline Flush) 2.5 ml FLUSH ASDIRECTED PRN PRN Reason: Keep Vein Open Sodium Chloride (Saline Flush) 10 ml FLUSH ASDIRECTED PRN PRN Reason: Keep Vein Open Sodium Chloride (Saline Flush) 2.5 ml FLUSH ASDIRECTED PRN PRN Reason: Keep Vein Open Sodium Chloride (Normal Saline) 10 ml IV ASDIRECTED PRN PRN Reason: IV Use
[2019-03-12] MEDS ORDERED: Propofol 200 MG/20 ML SDV ONE (07:49)
[2019-03-12] MEDS ORDERED: Lidocaine 2% 5 ML SDV ONE (07:49)
--- NOTE | 2019-03-12 08:50 | PCM.OPNOTE ---
- General Post-Op/Procedure Note Date of Surgery/Procedure: 03/12/19 Operative Procedure(s): Diagnostic colonoscopy Findings: 2-3 mm polyp at 30 cm. Well healed healthy appearing anastomoses Pre Op Diagnosis: History of colon cancer Post-Op Diagnosis: Colon polyp Anesthesia Technique: MAC Primary Surgeon: Cierra Mayers Condition: Good
--- NOTE | 2019-03-12 11:34 | PCM48HPAN ---
Post Anesthesia Note - EVALUATION WITHIN 48HRS OF ANESTHETIC Vital Signs in Normal Range: Yes Patient Participated in Evaluation: Yes Respiratory Function Stable: Yes Airway Patent: Yes Cardiovascular Function Stable: Yes Hydration Status Stable: Yes Pain Control Satisfactory: Yes Nausea and Vomiting Control Satisfactory: Yes Mental Status Recovered: Yes Vital Signs: Last Vital Signs Temp 97.7 F 03/12/19 09:05 Pulse 86 03/12/19 09:05 Resp 16 03/12/19 09:05 BP 135/85 03/12/19 09:05 Pulse Ox 98 03/12/19 09:05
--- NOTE | 2019-03-12 11:34 | PCM.POSTAN ---
POST ANESTHESIA ASSESSMENT - MENTAL STATUS Mental Status: Alert, Oriented - VITAL SIGNS Vital Signs: Last Vital Signs Temp 97.7 F 03/12/19 09:05 Pulse 86 03/12/19 09:05 Resp 16 03/12/19 09:05 BP 135/85 03/12/19 09:05 Pulse Ox 98 03/12/19 09:05 - RESPIRATORY Respiratory Status: Respiratory Rate WNL, Airway Patent, O2 Saturation Stable - CARDIOVASCULAR CV Status: Pulse Rate WNL, Blood Pressure Stable - GASTROINTESTINAL GI Status: No Symptoms - POST OP HYDRATION Hydration Status: Adequate & Stable
--- NOTE | 2019-03-12 13:01 | OR ---
SURGEON: CIERRA MAYERS MD DATE OF PROCEDURE: 03/12/2019 PREOPERATIVE DIAGNOSIS: History of colon cancer. POSTOPERATIVE DIAGNOSIS: Colon polyp at 30 cm. PROCEDURE PERFORMED: Diagnostic colonoscopy. PRIMARY SURGEON: Cierra Mayers MD. ANESTHESIA: MAC. INSTRUMENT USED: Olympus colonoscope. EXTENT OF EXAM: To the transverse colon-small bowel anastomosis. PREPARATION: Good. LIMITATIONS: None. INDICATIONS FOR EXAMINATION: The patient is a 68-year-old female who underwent a right hemicolectomy and sigmoidectomy for multifocal colon cancer last year. She is due for a 1 year followup colonoscopy. The patient and I discussed the procedure; expected perioperative course; and risks including bleeding, infection, or damage to surrounding structures including perforation. The patient verbalized understanding and wishes to proceed. PROCEDURE IN DETAIL: The patient was brought into the endoscopy suite and placed in the left lateral decubitus position. A time-out was completed verifying the patient's name, age, date of , allergies, and procedure to be performed. Monitored anesthesia care was induced and continuous oxygen was provided via nasal cannula throughout the procedure. After adequate sedation was achieved, a digital rectal exam was performed. This exam was within normal limits. A well-lubricated colonoscope was inserted in the rectum and advanced under direct visualization to the level of the anastomosis of the small bowel and colon. A photograph of this was taken. The scope was then fully withdrawn while examining the color, texture, anatomy, and integrity of the mucosa from the anastomotic line to the rectum. The small bowel-colon anastomosis appeared healthy with no evidence of disease recurrence. The staple line was well healed. At 30 cm from the anus, the patient was noted to have a very small sessile polyp within the colon lining. This was removed in piecemeal fashion using cold biopsy forceps. It was then labeled as colon polyp at 30 cm. The second staple line was located at approximately 10 cm. Again, this appeared well healed. I could see no evidence of disease recurrence. The scope was then brought into the rectum and retroflexed to allow visualization of the anal canal opening. This appeared normal and a photograph was taken. Scope was then straightened out and fully withdrawn. The time from the anastomotic line until the scope was removed was 8 minutes. The patient tolerated the procedure well and was transferred to the PACU in stable condition. ENDOSCOPIC DIAGNOSIS: Colon polyp at 30 cm. RECOMMENDATIONS: Follow up in clinic in 2 weeks. LEONOR / VAL /[id number]
== END 2019-03-12 09:35 | disposition home or self-care (01) ==
LOC: MW.SDS 06:34
PROVIDERS: ATTEND Surgery
DX: Z09 Encounter for follow-up examination after completed treatment for conditions other than malignant neoplasm (principal); D12.5 Benign neoplasm of sigmoid colon; M19.90 Unspecified osteoarthritis, unspecified site; Z79.01 Long term (current) use of anticoagulants; Z88.1 Allergy status to other antibiotic agents; Z88.2 Allergy status to sulfonamides; Z98.0 Intestinal bypass and anastomosis status; Z90.49 Acquired absence of other specified parts of digestive tract; Z85.038 Personal history of other malignant neoplasm of large intestine; Z92.21 Personal history of antineoplastic chemotherapy; Z86.711 Personal history of pulmonary embolism
CPT/HCPCS: J2001; J2704; J7120

== ENCOUNTER 2021-03-14 06:34 | Day surgery (SDC) | payer MEDICARE, BC ==
[~2021-03-14 06:34] MED LIST changes: -Sodium Chloride 0.9% 10 ML SDV IV PRN; +Sodium Chloride 0.9% 20 ML SDV IV PRN
--- NOTE | 2021-03-14 07:15 | PCM.PREANE ---
Preanesthetic Assessment - Procedure Proposed Procedure: Colonoscopy - Anesthesia/Transfusion/Family Hx Anesthesia History: Prior Anesthesia Without Reaction Family History of Anesthesia Reaction: No Transfusion History: Prior Transfusion Without Reaction Intubation History: Unknown - Review of Systems General: No Symptoms Pulmonary: No Symptoms Cardiovascular: No Symptoms (HLD) Gastrointestinal: No Symptoms (h/o colon CA) Neurological: No Symptoms Other: Reports: None - Physical Assessment NPO Status Date: 03/13/21 NPO Status Time: 21:00 Vital Signs: Last Vital Signs Temp 98.2 F 03/14/21 06:45 Pulse 91 03/14/21 06:45 Resp 16 03/14/21 06:45 BP 141/69 H 03/14/21 06:45 Pulse Ox 96 03/14/21 06:45 Height: 5 ft 5 in Weight: 87.997 kg ASA Class: 3 Mental Status: Alert & Oriented x3 Airway Class: Mallampati = 2 Dentition: Reports: Normal Dentition Thyro-Mental Finger Breadths: 3 Mouth Opening Finger Breadths: 3 ROM/Head Extension: Full Lungs: Clear to Auscultation, Normal Respiratory Effort - Allergies Allergies/Adverse Reactions: Allergies Allergy/AdvReac Type Severity Reaction Status Date / Time adhesive tape Allergy Blisters Verified 03/08/21 10:18 erythromycin base Allergy Hives Verified 03/08/21 10:18 nitrofurantoin Allergy Hives Verified 03/08/21 10:18 [From Macrodantin] Sulfa (Sulfonamide Allergy Hives Verified 03/08/21 10:18 Antibiotics) - Acknowledgements Anesthesia Type Planned: General Anesthesia Pt an Appropriate Candidate for the Planned Anesthesia: Yes Alternatives and Risks of Anesthesia Discussed w Pt/Guardian: Yes Pt/Guardian Understands and Agrees with Anesthesia Plan: Yes PreAnesthesia Questionnaire HEENT History: Reports: Other (See Below) Other HEENT History: wears glasses Cardiovascular History: Reports: Heart Murmur, High Cholesterol Other Cardiovascular History: hx of Left Aortic Mitral Valve Prolapse- diagnosed in mid - no Doctors have heard a murmur since Respiratory History: Reports: PE Other Respiratory History: hx of bilateral PE during chemotherapy- taking Eliquis Gastrointestinal History: Reports: Colon Polyp Genitourinary History: Reports: None [employer] History: Reports: Ectopic , Musculoskeletal History: Reports: Arthritis Neurological History: Reports: None Psychiatric History: Reports: None Endocrine/Metabolic History: Reports: Obesity/BMI 30+, Osteopenia Hematologic History: Reports: Blood Transfusion(s) Immunologic History: Reports: None Oncologic (Cancer) History: Reports: Basal Cell Carcinoma, Colon Other Oncologic History: basal cell removed from leg - Infectious Disease History Infectious Disease History: Reports: None - Past Surgical History Head Surgeries/Procedures: Reports: None Cardiovascular Surgical History: Reports: Other (See Below) Other Cardiovascular Surgeries/Procedures: Insertion of Port-a- cath for chemotherapy GI Surgical History: Reports: Colon, Colonoscopy Other GI Surgeries/Procedures: hx of Laparoscopic Right Hemicolectomy and Sigmoidectomy Female Surgical History: Reports: Section, Other (See Below) Other Female Surgeries/Procedures: Salpingectomy for Ectopic Dermatological Surgical History: Reports: Skin Biopsy - SUBSTANCE USE Tobacco Use Status *Q: Never Tobacco User Recreational Drug Use History: No - HOME MEDS Home Medications: Home Meds Apixaban [Eliquis] 5 mg PO BID #60 tablet 07/03/18 [Rx] Acetaminophen [Tylenol Arthritis] 650 mg PO DAILY 03/08/21 [History] Ascorbic Acid/Ascorbate Sodium [Vitamin C 500 mg Tablet Chew] 500 mg PO BID 03/08/21 [History] Biotin 10,000 mcg PO DAILY 03/08/21 [History] Calcium Carbonate/Vitamin D3 [Calcium 250+D] 250 mg PO DAILY 03/08/21 [History] Cholecalciferol (Vitamin D3) [Vitamin D3] 1,000 unit PO DAILY 03/08/21 [History] Cyanocobalamin (Vitamin B12) [Vitamin B12] 250 mg PO DAILY 03/08/21 [History] Magnesium 200 mg PO DAILY 03/08/21 [History] Turmeric/Turmeric Root Extract [Turmeric 500 mg Capsule] 500 mg PO DAILY 03/08/21 [History] Vit A Acet/Vit C/Znox/Propolis [Zinc Lozenges] 1 tab PO BID 03/08/21 [History] Vitamin B Complex 1 cap PO DAILY 03/08/21 [History] atorvaSTATin Calcium [Atorvastatin Calcium] 20 mg PO DAILY 03/08/21 [History] - CURRENT (IN HOUSE) MEDS Current Meds: Current Medications Lactated Ringer's (Ringers, Lactated) 1,000 mls @ 125 mls/hr IV ASDIRECTED AYSHA Sodium Chloride (Sodium Chloride 0.9% 10 Ml Syringe) 10 ml FLUSH ASDIRECTED PRN PRN Reason: Keep Vein Open Sodium Chloride (Sodium Chloride 0.9% 2.5 Ml Syringe) 2.5 ml FLUSH ASDIRECTED PRN PRN Reason: Keep Vein Open Sodium Chloride (Sodium Chloride 0.9% 10 Ml Syringe) 10 ml FLUSH ASDIRECTED PRN PRN Reason: Keep Vein Open Sodium Chloride (Sodium Chloride 0.9% 2.5 Ml Syringe) 2.5 ml FLUSH ASDIRECTED PRN PRN Reason: Keep Vein Open Sodium Chloride (Sodium Chloride 0.9% 20 Ml Sdv) 10 ml IV ASDIRECTED PRN PRN Reason: IV Use
[2021-03-14] MEDS ORDERED: fentaNYL 100 MCG/2 ML SDV ONE (07:25)
[2021-03-14] MEDS ORDERED: Propofol 200 MG/20 ML SDV ONE (07:25)
--- NOTE | 2021-03-14 08:50 | PCM.POSTAN ---
POST ANESTHESIA ASSESSMENT - MENTAL STATUS Mental Status: Alert, Oriented - VITAL SIGNS Vital Signs: Last Vital Signs Temp 98.2 F 03/14/21 06:45 Pulse 91 03/14/21 06:45 Resp 16 03/14/21 06:45 BP 141/69 H 03/14/21 06:45 Pulse Ox 96 03/14/21 06:45 - RESPIRATORY Respiratory Status: Respiratory Rate WNL, Airway Patent, O2 Saturation Stable - CARDIOVASCULAR CV Status: Pulse Rate WNL, Blood Pressure Stable - GASTROINTESTINAL GI Status: No Symptoms - PAIN Pain Score: 0 - POST OP HYDRATION Hydration Status: Adequate & Stable
--- NOTE | 2021-03-14 08:54 | PCM.OPNOTE ---
- General Post-Op/Procedure Note Date of Surgery/Procedure: 03/14/21 Operative Procedure(s): Screening colonoscopy with polypectomy Findings: sigmoid colon polyp x 2 Pre Op Diagnosis: History of colon cancer Post-Op Diagnosis: Sigmoid colon polyp Anesthesia Technique: [facility] – [place], [place] Primary Surgeon: Cierra Mayers Condition: Good
--- NOTE | 2021-03-14 09:00 | PCM48HPAN ---
Post Anesthesia Note - EVALUATION WITHIN 48HRS OF ANESTHETIC Vital Signs in Normal Range: Yes Patient Participated in Evaluation: Yes Respiratory Function Stable: Yes Airway Patent: Yes Cardiovascular Function Stable: Yes Hydration Status Stable: Yes Pain Control Satisfactory: Yes Nausea and Vomiting Control Satisfactory: Yes Mental Status Recovered: Yes Vital Signs: Last Vital Signs Temp 98.2 F 03/14/21 08:45 Pulse 82 03/14/21 08:55 Resp 16 03/14/21 08:55 BP 114/63 03/14/21 08:55 Pulse Ox 94 L 03/14/21 08:55 - COMMENTS/OBSERVATIONS Free Text/Narrative:: Pt doing well post-op. VSS. No apparent anesthetic complications. Dr. Canelo Myles
[2021-03-14] MEDS: Sodium Chloride 0.9% 10 ML Syringe FLUSH PRN ×2 (09:20→10:07)
--- NOTE | 2021-03-14 09:57 | OR ---
SURGEON: CIERRA MAYERS MD DATE OF PROCEDURE: 03/14/2021 PREOPERATIVE DIAGNOSIS: History of colon cancer. POSTOPERATIVE DIAGNOSIS: Sigmoid colon polyps x2. PROCEDURE PERFORMED: Screening colonoscopy. ENDOSCOPIST: Cierra Mayers MD ANESTHESIA: General. INSTRUMENT USED: Olympus colonoscope. EXTENT OF EXAM: To the small intestine-large intestine anastomosis. PREPARATION: Good. LIMITATIONS: None. INDICATIONS FOR EXAMINATION: The patient is a 70-year-old female with history of colon cancer. She had a right hemicolectomy and a sigmoidectomy. During her last screening colonoscopy, she was found to have a polyp near one of the staple lines. She is here for followup colonoscopy. The patient and I discussed the procedure, expected perioperative course, and the risks. She verbalized understanding and wishes to proceed. PROCEDURE IN DETAIL: The patient was brought to the endoscopy suite and placed in the left lateral decubitus position. A time-out was completed verifying the patient's name, age, date of , allergies, and procedure to be performed. General anesthesia was induced and continuous oxygen was provided via face mask throughout the procedure. After adequate sedation was achieved, a digital rectal exam was performed. This was grossly normal. A well-lubricated colonoscope was inserted in the rectum and advanced under direct visualization to the anastomosis of the small intestine to the colon. A photograph was taken of the staple line just beyond the rectum as well as the staple line at the anastomosis. The scope was then fully withdrawn while examining the color, texture, anatomy, and integrity of the mucosa from the anastomosis to the anal canal. At 30 cm, the patient was noted to have 2 sessile polyps next to each other. These were removed in piecemeal fashion using cold biopsy forceps and sent to pathology, labeled as sigmoid colon polyp #1 and sigmoid colon polyp #2. Both staple lines appeared intact. There appeared to be no evidence of reoccurrence at either staple line. The scope was then brought into the rectum and retroflexed to allow visualization of anal canal opening. The patient had mildly enlarged internal hemorrhoids. A photograph of this was taken. The scope was straightened out and fully withdrawn. The time from the end of the colon to the end of the procedure was 11 minutes. The patient tolerated the procedure well and was transferred to PACU in stable condition. ENDOSCOPIC DIAGNOSIS: Sigmoid colon polyps x2. RECOMMENDATIONS: We will have the patient follow up in clinic in 2 weeks. She can restart her Eliquis tomorrow. LEONOR / VAL /[id number]
== END 2021-03-14 09:30 | disposition home or self-care (01) ==
LOC: MW.SDS 06:34
PROVIDERS: ATTEND Surgery
DX: Z12.11 Encounter for screening for malignant neoplasm of colon (principal); D12.5 Benign neoplasm of sigmoid colon; K64.8 Other hemorrhoids; I10 Essential (primary) hypertension; G57.93 Unspecified mononeuropathy of bilateral lower limbs; M85.80 Other specified disorders of bone density and structure, unspecified site; Z88.8 Allergy status to other drugs, medicaments and biological substances; Z88.2 Allergy status to sulfonamides; Z79.899 Other long term (current) drug therapy; Z98.0 Intestinal bypass and anastomosis status; Z85.038 Personal history of other malignant neoplasm of large intestine; Z90.49 Acquired absence of other specified parts of digestive tract; Z79.01 Long term (current) use of anticoagulants; Z98.890 Other specified postprocedural states
CPT/HCPCS: 45380; J1642; J2704; J3010; J7120; 00812

== ENCOUNTER 2023-02-19 12:03 | Day surgery (SDC) | payer MEDICARE, BC ==
[2023-02-19] MEDS ORDERED: propofoL 50 ML ONE (12:28)
== END 2023-02-19 14:28 | disposition home or self-care (01) ==
LOC: MW.SDS 12:03
PROVIDERS: ATTEND Surgery
DX: Z12.11 Encounter for screening for malignant neoplasm of colon (principal); D12.3 Benign neoplasm of transverse colon; I10 Essential (primary) hypertension; E78.00 Pure hypercholesterolemia, unspecified; E66.9 Obesity, unspecified; Z68.32 Body mass index [BMI] 32.0-32.9, adult; Z79.899 Other long term (current) drug therapy; Z91.048 Other nonmedicinal substance allergy status; Z88.2 Allergy status to sulfonamides; Z88.1 Allergy status to other antibiotic agents
CPT/HCPCS: 45380; J1642; J2704; J7120

== ENCOUNTER 2023-12-10 08:08 | Day surgery (SDC) | payer MEDICARE, BC ==
[~2023-12-10 08:08] MED LIST changes: -Lactated Ringers 1,000 ML IV SCH
[2023-12-10] MEDS: Lactated Ringers 1,000 ML IV SCH (09:05)
[2023-12-10] MEDS ORDERED: fentaNYL 100 MCG/2 ML SDV ONE (09:43)
[2023-12-10] MEDS ORDERED: Midazolam 1 MG/ML 2 ML SDV ONE (09:43)
[2023-12-10] MEDS ORDERED: Propofol 200 MG/20 ML SDV ONE (09:43)
[2023-12-10] MEDS ORDERED: Ketamine HCL/NACL, ISO-OSM 50 MG/5 ML Syringe ONE (09:43)
[2023-12-10] MEDS ORDERED: Bupivacaine 0.5% 30 ML SDV ONE (09:45)
[2023-12-10] MEDS ORDERED: Lidocaine 1% 20 ML MDV ONE (09:45)
[2023-12-10] MEDS ORDERED: dexmedeTOMIDine HCl 200 MCG/2 ML SDV ONE (10:32)
== END 2023-12-10 12:04 | disposition home or self-care (01) ==
LOC: MW.SDS 08:08
PROVIDERS: ATTEND Surgery
DX: C18.9 Malignant neoplasm of colon, unspecified (principal); I10 Essential (primary) hypertension; E78.5 Hyperlipidemia, unspecified; Z88.1 Allergy status to other antibiotic agents; Z88.2 Allergy status to sulfonamides; Z88.8 Allergy status to other drugs, medicaments and biological substances; Z79.899 Other long term (current) drug therapy; Z79.01 Long term (current) use of anticoagulants
CPT/HCPCS: 36590; J0665; J2250; J2704; J3010; J7120; 00400; J3490